=== PATIENT | female | born 1990 | race Caucasian/White ===

== ENCOUNTER 2018-01-17 18:04 | Emergency (ER) | payer OTHER ==
[2018-01-17] MEDS ORDERED: ASPIRIN 81 MG CHEWABLE TABLET ONE (18:42)
[2018-01-17] MEDS ORDERED: ONDANSETRON 4 MG/2 ML VIAL ONE (18:42)
[2018-01-17 19:32] LABS: Absolute Lymphocytes (CBC) 1.8 K/uL (0.7-4.9); Absolute Monocytes 0.6 K/uL (0.1-1.3); Absolute Neutrophil 4.4 K/uL (1.8-8.0); Basophils % 0.5 % (0-1.3); Eosinophils % 1.1 % (0-4.4); Hematocrit 45.5 % (36.0-45.0); MCV 93.9 fL (80-100); MPV 8.2 fL (7.6-11.3); RBC Red Blood Cell Count 4.84 M/uL (3.86-4.86)
[2018-01-17 19:36] LABS: Protime INR 0.97
[2018-01-17 19:39] LABS: Bicarbonate 23 mEq/L (21-31); Glucose Level 87 mg/dL (65-120); Potassium 3.5 mEq/L (3.6-5.0); Sodium Level 133 mEq/L (135-145)
[2018-01-17 19:46] LABS: ALT/SGPT 28 IU/L (10-60); AST/SGOT 28 IU/L (10-42); Albumin 4.1 g/dL (3.2-5.5); Alkaline Phosphatase 63 IU/L (42-121); BUN Blood Urea Nitrogen 11 mg/dL (6-20); Bilirubin Direct < 0.1 mg/dL (0-0.2); Bilirubin Total 0.5 mg/dL (0.3-1.2); Magnesium 1.9 mg/dL (1.8-2.5); Protein, Total 7.4 g/dL (6.0-8.3)
--- NOTE | 2018-01-17 19:51 | RAD REPORT ---
EXAM DESCRIPTION: RAD - Chest Single View - 01/17/2018 7:43 pm CLINICAL HISTORY: Chest pain. COMPARISON: 10/09/2011 FINDINGS: Portable technique limits examination quality. The lungs are grossly clear. The heart is normal in size. No displaced fractures. IMPRESSION: No acute intrathoracic process suspected.
--- NOTE | 2018-01-17 20:17 | ER ---
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 Transition of care: patient was not received from another setting of care. Onset of symptoms was January 17, 2018. Care prior to arrival: None. 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 - Social history:: Smoking status: Patient uses tobacco products, smokes one-half pack cigarettes per day. Screenin:22 Abuse screen: Denies threats or abuse. Denies injuries from another. Nutritional sv screening: No deficits noted. Tuberculosis screening: No symptoms or risk factors identified. Fall Risk None identified. Assessment: 18:22 General: Appears uncomfortable, slender, well groomed, well developed, Behavior is sv calm, cooperative, appropriate for age. General: Reports that she had just left the tanning bed. Pain: Complains of pain in anterior aspect of left upper chest Pain radiates to left lateral posterior chest and left lateral anterior chest Pain currently is 5 out of 10 on a pain scale. Quality of pain is described as sharp, Pain began 30 min ago. Is intermittent, Alleviated by Aggravated by unknown. Neuro: Level of Consciousness is awake, alert, obeys commands, Oriented to person, place, time, situation, Moves all extremities. Full function Gait is steady, Speech is normal. Cardiovascular: Patient's skin is warm and dry. Respiratory: Respiratory effort is even, unlabored, Respiratory pattern is regular, symmetrical. Derm: Skin is pink, warm \T\ dry. Musculoskeletal: Range of motion: intact in all extremities. 19:00 Reassessment: RECD REPORT FROM MARIE THOMAS. 27YO WF P/W SUBSTERNAL AND LEFT CP, bp RADIATING TO BACK, NO SIGNIFICANT CARDIAC HX. 20:24 Reassessment: PT D/C HOME AMBULATORY WITH FAMILY, DX WITH NON-CARDIAC CP. bp Vital Signs: 18:14 BP 115 / 70; Pulse 91; Resp 16; Temp 98.2; Pulse Ox 100% on R/A; Weight 58.97 kg; la1 Height 5 ft. 0 in. (152.40 cm); 19:00 BP 96 / 58; Pulse 77; Resp 15; Pulse Ox 100% on R/A; bp 20:15 BP 100 / 71; Pulse 73; Resp 10; Pulse Ox 99% ; bp 18:14 Body Mass Index 25.39 (58.97 kg, 152.40 cm) la1 ED Course: 18:07 Patient arrived in ED. mr 18:14 Triage completed. la1 18:15 Arm band placed on right wrist. la1 18:18 Marie Estrada RN is Primary Nurse. sv 18:21 Ryne Beebe PA is PHCP. jr8 18:21 Liang Fried MD is Attending Physician. jr8 18:22 Patient has correct armband on for positive identification. Bed in low position. Call sv light in reach. Door closed. Warm blanket given. Head of bed elevated. 18:25 EKG done, by ED staff, reviewed by Liang Fried MD. sv 18:35 Nurse Practitioner and/or Physician Lining Setter to see patient. sv 18:50 Missed attempt(s): 22 gauge in right antecubital area. Bleeding controlled, band aid sv applied, catheter tip intact. 19:00 back maker on. Pulse ox on. NIBP on. bp 19:15 Report given to Radames THOMAS. sv 19:17 Inserted saline lock: 22 gauge in left hand, using aseptic technique. Blood collected. bp 19:26 Primary Nurse role handed off by Marie Estrada RN bp 19:26 Radames Steve RN is Primary Nurse. bp 19:38 XRAY Chest (1 view) Sent. bp 19:41 X-ray completed. Portable x-ray completed in exam room. Patient tolerated procedure mh1 well. 19:41 XRAY Chest (1 view) In Process Unspecified. EDMS 20:16 Tevin Fletcher MD is Referral Physician. jr8 20:26 No provider procedures requiring assistance completed. IV discontinued, intact, bp bleeding controlled, No redness/swelling at site. Pressure dressing applied. Patient maintains SpO2 saturation greater than 95% on room air. Administered Medications: 19:14 Drug: Zofran 4 mg Route: IVP; Site: left wrist; sv 19:38 Follow up: Response: Nausea is decreased bp 19:37 Drug: Aspirin Chewable Tablet 324 mg Route: PO; bp 19:38 Follow up: Response: No adverse reaction bp Outcome: 20:16 Discharge ordered by MD. valladares 20:26 Discharged to home ambulatory, with family. bp 20:26 Condition: stable 20:26 Discharge instructions given to patient, Instructed on discharge instructions, follow up and referral plans. Demonstrated understanding of instructions, follow-up care. 20:27 Patient left the ED. bp Signatures: Dispatcher [employer] EDMarie Mccarthy RN RN Suyapa Cast Abigail Guidry 1 Ryne Beebe PA PA jr8 Attema, Lee, RN RN txRadames Swenson RN RN bp
--- NOTE | 2018-01-17 20:17 | EDPHYS ---
Physician Documentation [facility] Name: Eloina Daly Age: 27 yrs Sex: Female : 1990 Arrival Date: 01/17/2018 Time: 18:07 Bed 8 Private MD: ED Physician Liang Fried HPI: 01/17 18:38 This 27 yrs old Female presents to ER via Ambulatory with complaints of Chest jr8 Pain. 18:38 The patient or guardian reports chest pain that is located primarily in the substernal jr8 area. The pain radiates to the left arm. Associated signs and symptoms: Pertinent positives: nausea. The chest pain is described as a heaviness, a pressure. Duration: The patient or guardian reports a single episode. Modifying factors: The symptoms are alleviated by nothing. the symptoms are aggravated by nothing. Severity of pain: At its worst the pain was moderate in the emergency department the pain has improved mildly. The patient has not experienced similar symptoms in the past. The patient has not recently seen a physician. 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 - Social history:: Smoking status: Patient uses tobacco products, smokes one-half pack cigarettes per day. ROS: 18:38 Eyes: Negative for injury, pain, redness, and discharge, ENT: Negative for injury, jr8 pain, and discharge, Neck: Negative for injury, pain, and swelling, Respiratory: Negative for shortness of breath, cough, wheezing, and pleuritic chest pain, Abdomen/GI: Negative for abdominal pain, nausea, vomiting, diarrhea, and constipation, Back: Negative for injury and pain, MS/Extremity: Negative for injury and deformity, Skin: Negative for injury, rash, and discoloration, Neuro: Negative for headache, weakness, numbness, tingling, and seizure. 18:38 Cardiovascular: Positive for chest pain, Negative for edema, orthopnea, palpitations, paroxysmal nocturnal dyspnea. Exam: 18:38 Head/Face: Normocephalic, atraumatic. Eyes: Pupils equal round and reactive to light, jr8 extra-ocular motions intact. Lids and lashes normal. Conjunctiva and sclera are non-icteric and not injected. Cornea within normal limits. Periorbital areas with no swelling, redness, or edema. ENT: Nares patent. No nasal discharge, no septal abnormalities noted. Tympanic membranes are normal and external auditory canals are clear. Oropharynx with no redness, swelling, or masses, exudates, or evidence of obstruction, uvula midline. Mucous membranes moist. Neck: Trachea midline, no thyromegaly or masses palpated, and no cervical lymphadenopathy. Supple, full range of motion without nuchal rigidity, or vertebral point tenderness. No Meningismus. Chest/axilla: Normal chest wall appearance and motion. Nontender with no deformity. No lesions are appreciated. Cardiovascular: Regular rate and rhythm with a normal S1 and S2. No gallops, murmurs, or rubs. Normal PMI, no JVD. No pulse deficits. Respiratory: Lungs have equal breath sounds bilaterally, clear to auscultation and percussion. No rales, rhonchi or wheezes noted. No increased work of breathing, no retractions or nasal flaring. Abdomen/GI: Soft, non-tender, with normal bowel sounds. No distension or tympany. No guarding or rebound. No evidence of tenderness throughout. Back: No spinal tenderness. No costovertebral tenderness. Full range of motion. Skin: Warm, dry with normal turgor. Normal color with no rashes, no lesions, and no evidence of cellulitis. MS/ Extremity: Pulses equal, no cyanosis. Neurovascular intact. Full, normal range of motion. Neuro: Awake and alert, GCS 15, oriented to person, place, time, and situation. Cranial nerves II-XII grossly intact. Motor strength 5/5 in all extremities. Sensory grossly intact. Cerebellar exam normal. Normal gait. Vital Signs: 18:14 BP 115 / 70; Pulse 91; Resp 16; Temp 98.2; Pulse Ox 100% on R/A; Weight 58.97 kg; la1 Height 5 ft. 0 in. (152.40 cm); 19:00 BP 96 / 58; Pulse 77; Resp 15; Pulse Ox 100% on R/A; bp 20:15 BP 100 / 71; Pulse 73; Resp 10; Pulse Ox 99% ; bp 18:14 Body Mass Index 25.39 (58.97 kg, 152.40 cm) la1 MDM: 18:21 Patient medically screened. jr8 20:11 Data reviewed: vital signs, nurses notes, lab test result(s), EKG, radiologic studies, jr8 plain films, and as a result, I will discharge patient. Data interpreted: Pulse oximetry: on room air is 100 %. Interpretation: normal. Counseling: I had a detailed discussion with the patient and/or guardian regarding: the historical points, exam findings, and any diagnostic results supporting the discharge/admit diagnosis, lab results, radiology results, the need for outpatient follow up, a tie presser, a family practitioner, to return to the emergency department if symptoms worsen or persist or if there are any questions or concerns that arise at home. Response to treatment: the patient's symptoms have resolved after treatment. ED course: Discussed with patient that everything thus far looks ok. No abnormal findings. That we would like to repeat troponin before she were to go home. Patient does not want repeat. Explained to patient that that is fine but that we cannot fully r/o immediate cardiac event. Patient understood but still wants to go home. Told her to f/u with PCP in next couple of days. If she were to worsen to immediately come back for further evaluation . 01/17 18:37 Order name: Basic Metabolic Panel; Complete Time: 19:55 [facility] 01/17 18:37 Order name: BNP; Complete Time: 20:06 [facility] 01/17 18:37 Order name: CBC with Diff; Complete Time: 19:37 [facility] 01/17 18:37 Order name: LFT's; Complete Time: 19:55 [facility] 01/17 18:37 Order name: Magnesium; Complete Time: 19:55 [facility] 01/17 18:37 Order name: PT-INR; Complete Time: 20:06 [facility] 01/17 18:19 Order name: EKG; Complete Time: 18:19 sv 01/17 18:19 Order name: EKG - Nurse/Tech; Complete Time: 18:31 sv 01/17 18:37 Order name: Ptt, Activated; Complete Time: 20:06 01/17 18:37 Order name: Troponin (emerg Dept Use Only); Complete Time: 19:55 [facility] 01/17 18:37 Order name: XRAY Chest (1 view); Complete Time: 19:55 [facility] 01/17 18:37 Order name: Cardiac monitoring; Complete Time: 19:16 01/17 18:37 Order name: IV Saline Lock; Complete Time: 19:15 01/17 18:37 Order name: Labs collected and sent; Complete Time: 19:15 01/17 18:37 Order name: O2 Per Protocol; Complete Time: 19:16 01/17 18:37 Order name: O2 Sat Monitoring; Complete Time: 19:16 Administered Medications: 19:14 Drug: Zofran 4 mg Route: IVP; Site: left wrist; sv 19:38 Follow up: Response: Nausea is decreased bp 19:37 Drug: Aspirin Chewable Tablet 324 mg Route: PO; bp 19:38 Follow up: Response: No adverse reaction bp Disposition: 01/17/18 20:16 Discharged to Home. Impression: Chest pain, unspecified. - Condition is Stable. - Discharge Instructions: Nonspecific Chest Pain. - Medication Reconciliation Form, Thank You Letter, Antibiotic Education, Prescription Opioid Use form. - Follow up: Private Physician; When: 1 - 2 days; Reason: Recheck today's complaints, Continuance of care, Re-evaluation by your physician. Follow up: Tevin Fletcher MD; When: 5 - 6 days; Reason: If symptoms return, Recheck today's complaints, Continuance of care, Re-evaluation by your physician. - Problem is new. - Symptoms have improved. Addendum: 01/20/2018 07:44 Co-signature as Attending Physician, Liang Fried MD I agree with the assessment and w a plan of care. Signatures: Dispatcher [employer] Marie Hardy, RN Ryne Hanna PA PA jr8 Dylan Isaac RN RN la1 Liang Fried MD MD wa Peltier, Brian RN RN bp
[2018-01-17 20:51] VITALS: TEMP 98.2
[2018-01-17 20:52] VITALS: BP 100/71; O2SAT 99
--- NOTE | 2018-01-19 22:40 | EKG ---
Test Date: 2018-01-17 Test Time: 18:25:07 Water Control Supervisor: ROBBY MEASUREMENT RESULTS: Intervals: Rate: 72 MN: 134 QRSD: 74 QT: 366 QTc: 400 Dania: P: 77 MN: 134 QRS: 58 T: 61 INTERPRETIVE STATEMENTS: Normal sinus rhythm with sinus arrhythmia Possible Left atrial enlargement Borderline ECG No previous ECG available for comparison Electronically Signed On 01-19-18 22:40:12 CDT by Tevin Fletcher
== END 2018-01-17 20:27 | disposition home or self-care (01) ==
LOC: ER 18:04
DX: R07.9 Chest pain, unspecified (principal)
CPT/HCPCS: 36415; 71045; 80048; 80076; 83735; 83880; 84484; 85025; 85610; 85730; 93005; 96374; 99285; J2405

== ENCOUNTER 2019-03-09 12:49 | Emergency (ER) | payer OTHER ==
--- OUTSIDE RECORDS SUMMARY | 2019-03-09 12:51 | XMS REPORT ---
:1990 [facility] Address [address] [place] [address] Dr. [address] [place] [id number] Care Team Providers Name Role Phone Unavailable Unavailable Unavailable Problems This patient has no known problems. Allergies, Adverse Reactions, Alerts This patient has no known allergies or adverse reactions. Medications This patient has no known medications.
--- NOTE | 2019-03-09 13:40 | EDPHYS ---
Physician Documentation [facility] Name: Eloina Daly Age: 28 yrs Sex: Female : 1990 Arrival Date: 03/09/2019 Time: 12:52 Bed 10 Private MD: ED Physician Kash Stuart HPI: 03/09 13:51 This 28 yrs old Female presents to ER via Ambulatory with complaints of Wound snw Infection. 13:51 The patient presents with cellulitis of the palmar aspect of left forearm. Description: snw draining, erythematous, raised, warm. Onset: The symptoms/episode began/occurred suddenly, 2 day(s) ago, and became worse yesterday, and became persistent. Associated signs and symptoms: Pertinent positives: drainage, erythema, swelling. Severity of symptoms: At their worst the symptoms were moderate. The patient has not experienced similar symptoms in the past. The patient has not recently seen a physician. unable to recall last tetanus immunization. 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 - Social history:: Smoking status: Patient/guardian denies using tobacco, Patient/guardian denies using alcohol. - Ebola Screening: : Patient negative for fever greater than or equal to 101.5 degrees Fahrenheit, and additional compatible Ebola Virus Disease symptoms Patient denies exposure to infectious person Patient denies travel to an Ebola-affected area in the 21 days before illness onset. ROS: 13:46 Constitutional: Negative for fever, chills, and weight loss, Eyes: Negative for injury, snw pain, redness, and discharge, ENT: Negative for injury, pain, and discharge, Neck: Negative for injury, pain, and swelling, Cardiovascular: Negative for chest pain, palpitations, and edema, Respiratory: Negative for shortness of breath, cough, wheezing, and pleuritic chest pain, Abdomen/GI: Negative for abdominal pain, nausea, vomiting, diarrhea, and constipation, Back: Negative for injury and pain, : Negative for injury, bleeding, discharge, and swelling, MS/Extremity: Negative for injury and deformity, Neuro: Negative for headache, weakness, numbness, tingling, and seizure, Psych: Negative for depression, anxiety, suicide ideation, homicidal ideation, and hallucinations. 13:46 Skin: Positive for abrasion(s), cellulitis, cat scratch. Exam: 13:44 Constitutional: This is a well developed, well nourished patient who is awake, alert, snw and in no acute distress. Head/Face: Normocephalic, atraumatic. Eyes: Pupils equal round and reactive to light, extra-ocular motions intact. Lids and lashes normal. Conjunctiva and sclera are non-icteric and not injected. Cornea within normal limits. Periorbital areas with no swelling, redness, or edema. ENT: Nares patent. No nasal discharge, no septal abnormalities noted. Tympanic membranes are normal and external auditory canals are clear. Oropharynx with no redness, swelling, or masses, exudates, or evidence of obstruction, uvula midline. Mucous membranes moist. Neck: Trachea midline, no thyromegaly or masses palpated, and no cervical lymphadenopathy. Supple, full range of motion without nuchal rigidity, or vertebral point tenderness. No Meningismus. Chest/axilla: Normal chest wall appearance and motion. Nontender with no deformity. No lesions are appreciated. Cardiovascular: Regular rate and rhythm with a normal S1 and S2. No gallops, murmurs, or rubs. Normal PMI, no JVD. No pulse deficits. Respiratory: Lungs have equal breath sounds bilaterally, clear to auscultation and percussion. No rales, rhonchi or wheezes noted. No increased work of breathing, no retractions or nasal flaring. Abdomen/GI: Soft, non-tender, with normal bowel sounds. No distension or tympany. No guarding or rebound. No evidence of tenderness throughout. Back: No spinal tenderness. No costovertebral tenderness. Full range of motion. MS/ Extremity: Pulses equal, no cyanosis. Neurovascular intact. Full, normal range of motion. Neuro: Awake and alert, GCS 15, oriented to person, place, time, and situation. Cranial nerves II-XII grossly intact. Motor strength 5/5 in all extremities. Sensory grossly intact. Cerebellar exam normal. Normal gait. Psych: Awake, alert, with orientation to person, place and time. Behavior, mood, and affect are within normal limits. 13:44 Skin: Appearance: normal except for affected area, cellulitis, that is moderate, on the palmar aspect of left forearm, + cat scratch surrounded by erythema, area with exudate filling a blistered area, exudate removed. Vital Signs: 12:55 BP 111 / 67; Pulse 102; Resp 18; Temp 99.5(O); Pulse Ox 98% on R/A; Weight 65.77 kg; hj Height 5 ft. 0 in. (152.40 cm); Pain 10/10; 12:55 Body Mass Index 28.32 (65.77 kg, 152.40 cm) hj MDM: 13:27 Patient medically screened. snw 13:46 Data reviewed: vital signs, nurses notes. Data interpreted: Pulse oximetry: on room air snw is 98 %. Interpretation: normal. Counseling: I had a detailed discussion with the patient and/or guardian regarding: the historical points, exam findings, and any diagnostic results supporting the discharge/admit diagnosis, the need for outpatient follow up, to return to the emergency department if symptoms worsen or persist or if there are any questions or concerns that arise at home. Special discussion: Based on the history and exam findings, there is no indication for further emergent testing or inpatient evaluation. I discussed with the patient/guardian the need to see the primary care provider for further evaluation of the symptoms. Administered Medications: 14:08 Drug: Phenergan 25 mg Route: PO; sg 14:08 Drug: Clindamycin 300 mg Route: PO; sg 14:08 Drug: Hibiclens 4 % 1 application Route: Topical; Site: wound; sg 14:08 Drug: Tetanus-Diphtheria Toxoid Adult 0.5 ml {Line Department Supervisor: Impinj. Exp: 06/25/2021. Lot #: [id number]. } Route: IM; Site: left deltoid; 14:09 Drug: TORadol 30 mg Route: IM; Site: right deltoid; sg Disposition: 03/10 07:35 Co-signature as Attending Physician, Kash Stuart MD I agree with the assessment and andre plan of care. Disposition: 03/09/19 13:40 Discharged to Home. Impression: Cellulitis of left upper limb. - Condition is Stable. - Discharge Instructions: Cellulitis, Adult, Wound Infection, VIS, Tetanus, Diphtheria (Td) - [facility], Wound Care. - Prescriptions for Clindamycin HCl 300 mg Oral Capsule - take 1 capsule by ORAL route every 6 hours for 10 days; 40 capsule. Diclofenac Sodium 75 mg Oral Tablet Sustained Release - take 1 tablet by ORAL route 2 times per day; 30 tablet. promethazine 25 mg Oral Tablet - take 1 tablet by ORAL route every 6 hours As needed; 20 tablet. - Work release form, SBAR form, Medication Reconciliation Form, Thank You Letter, Antibiotic Education, Prescription Opioid Use form. - Follow up: Private Physician; When: 2 - 3 days; Reason: Recheck today's complaints, Continuance of care, Re-evaluation by your physician. Follow up: Emergency Department; When: As needed; Reason: Worsening of condition. Signatures: Narciso Gonzalez, RN RN Kash Mccormick MD MD cha Therrien, Shelly, GLAZIER METAL FURNITURE-C GLAZIER METAL FURNITURE-Csnw Cintia Hernandez RN RN Kehinde Linares RN RN Corrections: (The following items were deleted from the chart) 03/09 14:30 13:40 03/09/2019 13:40 Discharged to Home. Impression: Cellulitis of left upper limb. iw Condition is Stable. Forms are Medication Reconciliation Form, Thank You Letter, Antibiotic Education, Prescription Opioid Use. Follow up: Private Physician; When: 2 - 3 days; Reason: Recheck today's complaints, Continuance of care, Re-evaluation by your physician. Follow up: Emergency Department; When: As needed; Reason: Worsening of condition. snw
--- NOTE | 2019-03-09 13:40 | ER ---
Nurse's Notes [facility] Name: Eloina Daly Age: 28 yrs Sex: Female : 1990 Arrival Date: 03/09/2019 Time: 12:52 Bed 10 Private MD: Diagnosis: Cellulitis of left upper limb Presentation: 03/09 12:53 Presenting complaint: Patient states: i was scratched by my ktten on my L lower arm and hj its getting worse, it has bubbles; denies fever, reports nausea;. Transition of care: patient was not received from another setting of care. Onset of symptoms was March 09, 2019. Risk Assessment: Do you want to hurt yourself or someone else? Patient reports no desire to harm self or others. Initial Sepsis Screen: Does the patient meet any 2 criteria? No. Patient's initial sepsis screen is negative. Does the patient have a suspected source of infection? No. Patient's initial sepsis screen is negative. 12:53 Method Of Arrival: Ambulatory 12:53 Acuity: JULISSA 4 12:54 Care prior to arrival: None. Triage Assessment: 13:19 General: Appears in no apparent distress. uncomfortable, Behavior is calm, cooperative, hj appropriate for age. Pain: Complains of pain in palmar aspect of left forearm. 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 - Social history:: Smoking status: Patient/guardian denies using tobacco, Patient/guardian denies using alcohol. - Ebola Screening: : Patient negative for fever greater than or equal to 101.5 degrees Fahrenheit, and additional compatible Ebola Virus Disease symptoms Patient denies exposure to infectious person Patient denies travel to an Ebola-affected area in the 21 days before illness onset. Screenin:19 Abuse screen: Denies threats or abuse. Denies injuries from another. Nutritional hj screening: No deficits noted. Tuberculosis screening: No symptoms or risk factors identified. Fall Risk None identified. Vital Signs: 12:55 BP 111 / 67; Pulse 102; Resp 18; Temp 99.5(O); Pulse Ox 98% on R/A; Weight 65.77 kg; hj Height 5 ft. 0 in. (152.40 cm); Pain 10/10; 12:55 Body Mass Index 28.32 (65.77 kg, 152.40 cm) hj ED Course: 12:52 Patient arrived in ED. mr 12:54 Triage completed. hj 12:54 Arm band placed on right wrist. hj 13:14 Kehinde Linares, RN is Primary Nurse. hj 13:20 Patient has correct armband on for positive identification. Placed in gown. Bed in low hj position. Call light in reach. Side rails up X 1. 13:26 Lil[facility] C[facility]C [facility]. snw 13:27 Kash Stuart MD is Attending Physician. 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 Exp: 06/25/2021. Lot #: [id number]. } Route: IM; Site: left deltoid; 14:09 Drug: TORadol 30 mg Route: IM; Site: right deltoid; Outcome: 13:40 Discharge ordered by . snw 14:30 Patient left the ED. Signatures: Narciso Gonzalez RN RN Lilian Cyr FNP-C FNP-Brody Kiana Cast Cintia Hernandez RN RN Kehinde Linares RN RN Corrections: (The following items were deleted from the chart) 12:54 12:52 Presenting complaint: [facility] 12:56 12:55 Pulse 102bpm; Resp 18bpm; Pulse Ox 98% RA; Temp 99.5F Oral; 65.77 kg; Height 5 hj ft. 0 in.; BMI: 28.3; Pain 10/10; hj
[2019-03-09] MEDS ORDERED: PROMETHAZINE 25 MG TABLET ONE (14:08)
[2019-03-09] MEDS ORDERED: TETANUS & DIPHTHERIA TOX,ADULT 0.5 ML VIAL ONE (14:09)
[2019-03-09] MEDS ORDERED: CLINDAMYCIN HCL 150 MG CAP ONE (14:09)
[2019-03-09] MEDS ORDERED: KETOROLAC 30 MG/ML INJ ONE (14:09)
[2019-03-09 14:36] VITALS: BP 111/67; TEMP 99.5; O2SAT 98
== END 2019-03-09 14:30 | disposition home or self-care (01) ==
LOC: ER 12:49
DX: L03.114 Cellulitis of left upper limb (principal); W55.03XA Scratched by cat, initial encounter; Y93.9 Activity, unspecified; Y92.9 Unspecified place or not applicable; Z23 Encounter for immunization
CPT/HCPCS: 90471; 90714; 96372; 99282